=== PATIENT | female | born 1990 | race Caucasian/White ===

== ENCOUNTER 2025-05-05 07:50 | Inpatient (IN) | payer SELFPAY, OTHER ==
[2025-05-05] VITALS (39 sets, daily range): BP systolic 112–146; BP diastolic 69–95; PULSE 76–94; RESP 15–18; TEMP 35.9–36.8; O2SAT 89–100; BMI 38.2
--- NOTE | 2025-05-05 08:19 | PCM.HP.OB ---
HPI - General General Date of Admission: 05/05/25 Date of Service: 05/05/25 Chief Complaint: vaginal bleeding HPI Narrative YOLANDA PIERRE, is a 35 F who presents from home with vaginal bleeding. She had painful contractions yesterday that then improved. Vaginal bleeding has been dark red and scant. No LOF. Good FM. She offers no complaints. She has been receiving care through her overlay plastician and was planning a delivery at the birthing center. [facility] History Addt'l History: 1st was a section for breech 2nd and 3rd pregnancies she reports high blood pressure, and she had vaginal deliveries at the birthing center. The biggest baby was 8lb 5 oz NST FHR Rate Baby A Baseline: 150 Variability:: Moderate Accelerations:: 15 x 15 Decelerations:: Late (one) Uterine Activity:: 1 contraction Labs Labs Labs: No Data to Display Assessment & Plan (1) 40 weeks gestation of : (2) Uterine contractions: PLAN: Admit for intrapartum care. Cervix 4-5/70/-2, vertex, posterior, intact. Bedside TAUS performed showing baby vertex presentation, subjectively normal fluid, fundal posterior placenta, +FHT. CEFM. Discussed GBS and panel and she accepts to have completed. Discussed r/b/a section vs TOLAC, and questions answered. Discussed risk of uterine rupture. She has had 2 prior successful with biggest baby 8+ pounds. Patient desires TOLAC. Start Pitocin for augmentation. Recommend internal monitors when able to AROM, and epidural. Pelvis adequate. (3) History of section: (4) No care in current : (5) Obesity affecting :
[2025-05-05] MEDS: Lactated Ringers 1,000 ML 50 ML IV (09:15)
[2025-05-05 09:42] LABS: Mucous, Urine 0 SEEN /hpf (<or=2+); Red Blood Cells-Urine 0 SEEN /hpf (0-5)
[2025-05-05 09:47] LABS: Hematocrit 37.6 % (37-47); Hemoglobin 13.2 g/dL (12.0-15.0); Immature Granulocytes Count 0.060 X10^3/uL (0.0-0.0); Mean Corp Hgb Conc 35.1 g/dL (32-36); Mean Corpuscular Volume 86.0 fL (81-99); Mean Platelet Vol. 9.4 fl (6.2-12.0); NRBC Flagged by Analyzer 0 % (0-5); Platelet Count 244 K/mm3 (150-450); RBC Distribution Width CV 12.9 % (11.6-14.6); RBC Distribution Width SD 40.2 fl (35.1-43.9); Red Blood Count 4.37 M/mm3 (4.2-5.4); White Blood Count 9.1 K/mm3 (4.4-11.0)
[2025-05-05] MEDS: Oxytocin 15 Units/NS 250ml 15 UNITS/250 ML IV.SOLN 2 UNITS IV (10:00)
[2025-05-05] MEDS: Lactated Ringers 1,000 ML 999 ML IV (10:02)
[2025-05-05 10:05] LABS: Creatinine, Urine (random) 40.10 mg/dL (28.00-217.00)
[2025-05-05 10:09] LABS: Barbiturate Urine NEGATIVE (< 200 ng/mL); Benzodiazepine Urine NEGATIVE (< 200 ng/mL); PCP Urine NEGATIVE (< 25 ng/mL); THC Urine NEGATIVE (< 50 ng/mL)
[2025-05-05 10:16] LABS: Protein, Urine (Random) 11.1 mg/dL (0.0-12.0); Protein:Creat Ratio 277 mg/g CRE (0-200)
[2025-05-05 10:23] LABS: Hepatitis C Antibody Nonreactive (Nonreactive)
[2025-05-05 10:24] LABS: Color, Urine Yellow (Yellow); Glucose, Dipstick Normal (Normal); Ketone-Dipstick Negative (Negative); Leukocyte Esterase-Dipstick 25 /ul (Negative); Nitrite-Dipstick Negative (Negative); Occult Blood-Urine 250 /ul (Negative); Protein-Dipstick 15 mg/dl (Negative); Specific Gravity, Urine 1.020 (1.002-1.030); Urine Bilirubin Dipstick Negative (Negative)
[2025-05-05 10:28] LABS: Hepatitis B Surface Antigen Nonreactive (Nonreactive); Syphilis Antibodies Nonreactive (Nonreactive)
[2025-05-05 10:35] LABS: Squamous Epithelial Cells - UA 0-5 SEEN /hpf (5-10)
[2025-05-05 10:42] LABS: AST(SGOT) 22 U/L (<=31); Alanine Aminotransfer ALT/SGPT 13 U/L (<=34); Albumin, Serum 3.4 g/dL (3.5-5.0); Alkaline Phosphatase 110 U/L (35-104); Anion Gap 14 (5-15); BUN 4 mg/dL (4-19); BUN/Creat Ratio 8.9 RATIO (10-20); Calcium,Total 9.6 mg/dL (7.6-11.0); Carbon Dioxide 17.9 mmol/L (21.0-32.0); Chloride 105 mmol/L (98-108); Estimated Creatinine Clearance 190.04 ml/min (50-250); Globulin 2.9 g/dL (2.2-4.2); Glucose 132 mg/dL (70-99); HIV Nonreactive (Nonreactive); Potassium 3.7 mmol/L (3.3-5.1)
[2025-05-05 11:32] LABS: Uric Acid 5.2 mg/dL (2.6-6.0)
[2025-05-05] MEDS: fentaNYL-bupivacaine (epidural) 100 ML BAG EPIDURAL (11:43)
--- NOTE | 2025-05-05 12:11 | PCM.PN.OB ---
Subjective Subjective Comfortable in bed with epidural. at bedside. Objective Data Objective Data Vital Signs: Vital Signs Temp Pulse Resp BP Pulse Ox 98.1 F 83 16 125/91 H 99 05/05/25 11:48 05/05/25 12:06 05/05/25 12:07 05/05/25 12:05 05/05/25 12:06 Weight: 230 lb Body Mass Index (BMI) 38.2 Intake & Output: Intake and Output for Last 24 Hours 05/03/25 05/04/25 05/05/25 23:59 23:59 23:59 Intake Total 1041.17 / 1041.17 Balance 1041.17 / 1041.17 Lab / Micro Data 05/05/25 09:07 05/05/25 09:07 Labs: Laboratory Results - last 24 hr 05/05/25 09:07: WBC 9.1, RBC 4.37, Hgb 13.2, Hct 37.6, MCV 86.0, MCH 30.2, MCHC 35.1, RDW Std Deviation 40.2, RDW Coeff of Corinne 12.9, Plt Count 244, MPV 9.4, Immature Gran % (Auto) 0.700, Neut % (Auto) 79.2 H, Lymph % (Auto) 13.7 L, [place] % (Auto) 5.6, Eos % (Auto) 0.5, Baso % (Auto) 0.3, Absolute Neuts (auto) 7.2, Absolute Lymphs (auto) 1.25, Nucleated RBC % 0, Sodium 137, Potassium 3.7, Chloride 105, Carbon Dioxide 17.9 L, Anion Gap 14, BUN 4, Creatinine 0.50 L, Estim Creat Clear Calc 190.04, Est GFR (MDRD) Non-Af 126, BUN/Creatinine Ratio 8.9 L, Glucose 132 H, Hemoglobin A1c 5.6, Uric Acid 5.2, Calcium 9.6, Total Bilirubin 0.50, AST 22, ALT 13, Alkaline Phosphatase 110 H, Total Protein 6.3, Albumin 3.4 L, Globulin 2.9, Albumin/Globulin Ratio 1.2, Urine Color Yellow, Urine Clarity Sl. Cloudy, Urine pH 6.0, Ur Specific [place] 1.020, Urine Protein 15 H, Urine Glucose (UA) Normal, Urine Ketones Negative, Urine Occult Blood 250 H, Urine Nitrite Negative, Urine Bilirubin Negative, Urine Urobilinogen Normal, Ur Leukocyte Esterase 25 H, Urine RBC 0 SEEN, Urine WBC 0 SEEN, Ur Squamous Epith Cells 0-5 SEEN, Urine Bacteria 0 SEEN, Urine Mucus 0 SEEN, U Random Total Protein 11.1, Urine Creatinine 40.10, Protein/Creatinin Ratio 277 H, Urine Opiates Screen NEGATIVE, U Buprenorphine Qual NEGATIVE, Ur Oxycodone Screen NEGATIVE, Urine Methadone Screen NEGATIVE, Urine Fentanyl Screen NEGATIVE, Ur Barbiturates Screen NEGATIVE, Ur Phencyclidine Scrn NEGATIVE, Ur Amphetamines Screen NEGATIVE, U Benzodiazepines Scrn NEGATIVE, Urine Cocaine Screen NEGATIVE, U Cannabinoids Screen NEGATIVE, Ur Drug Screen Comment Cancelled, Syphilis Total Ab Cancelled 05/05/25 09:07: Syphilis Total Ab Nonreactive, Hep Bs Antigen Nonreactive, Hepatitis C Antibody Nonreactive, HIV 1&2 Antibody Nonreactive, Rubella IgG Antibody Nonreactive, Blood Type AB POSITIVE, Antibody Screen NEGATIVE 05/05/25 09:53: POC Glucose 130 H Micro: Microbiology 05/05/25 09:07 Urine, Clean Catch Chlamydia/Neisseria (PCR) - Final 05/05/25 09:07 Genital vaginal Group B Streptococcus (PCR) - Final Physical Exam Manual OB Exam: presentation cephalic, dilated 6, effaced 60, station -1 and other AROM clear fluid NST FHR Rate Baby A Baseline: 135 Variability:: Moderate Accelerations:: 15 x 15 Decelerations:: None FHR Category:: Category I Uterine Activity:: irregular Assessment & Plan (1) Obesity affecting : (2) History of section: (3) Uterine contractions: (4) 40 weeks gestation of : (5) Desires (vaginal after ) trial: (6) No care in current : PLAN: Plan 1) Epidural for pain management 2) AROM clear fluid 3) updated on patient status, plan, and above assessment.
--- NOTE | 2025-05-05 15:44 | OB.VAGDELI_ITS ---
Assessment & Plan (1) (vaginal after ): (2) First degree perineal laceration: (3) Lactating mother: Vaginal Delivery Maternal Presentation Maternal Presentation: Medically Indicated Induction Type of Induction: Pitocin Medical Reason for Induction: Other (vaginal bleeding) Vaginal Delivery Information Procedure Performed: Surgeon/Practitioner: Gunjan Zuñiga Date of Procedure: 05/05/25 Pre-Procedure Diagnosis: TOLAC, History of Section Post-Procedure Diagnosis: , first degree perineal laceration Type of anesthesia: Epidural Estimated Blood Loss: 300ml Time of Delivery: 15:30 Findings Description of procedure: Progressed to complete with urge to push. Epidural pain management. of viable male infant over first degree perineal laceration . APGARS 8,9 respectively. head delivered with body immediately forthcoming. Placed on maternal abdomen, strong cry. Mouth and nares suctioned for secretions. Pitocin started for active 3rd stage management. Cord doubly clamped and cut by FOB after pulsations ceased, delayed cord clamping. Placenta delivered intact via scanlon, 3 vessel cord intact. Perineum inspected and revealed first degree perineal laceration. Repaired with 3.0 vicryl rapide with epidural. Fundus firm and hemostasis achieved. EBL 300ml. Mom and baby stable, planning to breastfeed. Family bonding well. notified of delivery. Presentation: Vertex and BRYSON Amniotic Membrane Rupture Type: Artificial Amniotic Fluid Description: Clear Placental Delivery Description: Spontaneous Placenta Disposition: [facility] Specimen collected: No Cord Vessel Description: 3 Vessels Cord Entanglement: None A Gender: Male (1 minute): 8 (5 minute): 9 Delayed Cord Clamping: Yes Show Host cash control specialist: No Post Vaginal Deli Medications given after delivery: IV Pitocin Episiotomy Description: None Laceration: Perineal Extension/lac and 1st degree Complication Complications: No
[2025-05-05] MEDS: Oxytocin 15 Units/NS 250ml 15 UNITS/250 ML IV.SOLN 83 UNITS IV (16:16)
[2025-05-06] VITALS (9 sets, daily range): BP systolic 106–129; BP diastolic 64–85; PULSE 79–95; RESP 16; TEMP 36.1–36.6; O2SAT 94–97
[2025-05-06 05:06] LABS: Hematocrit 32.8 % (37-47); Hemoglobin 11.5 g/dL (12.0-15.0); Immature Granulocytes Count 0.050 X10^3/uL (0.0-0.0); Mean Corp Hgb Conc 35.1 g/dL (32-36); Mean Corpuscular Volume 86.8 fL (81-99); Mean Platelet Vol. 9.4 fl (6.2-12.0); NRBC Flagged by Analyzer 0 % (0-5); Platelet Count 185 K/mm3 (150-450); RBC Distribution Width CV 13.0 % (11.6-14.6); RBC Distribution Width SD 40.4 fl (35.1-43.9); Red Blood Count 3.78 M/mm3 (4.2-5.4); White Blood Count 10.7 K/mm3 (4.4-11.0)
--- NOTE | 2025-05-06 08:48 | PN.OBGYN_ITS ---
Subjective Subjective Denies complaints Objective Data Objective Data Vital Signs: Vital Signs Temp Pulse Resp BP Pulse Ox O2 Del Method 97.3 F L 88 16 125/85 H 96 Room Air 05/06/25 07:45 05/06/25 07:45 05/06/25 03:41 05/06/25 07:44 05/06/25 07:45 05/06/25 03:41 Oxygen Delivery Method Room Air Weight: 230 lb Body Mass Index (BMI) 38.2 Intake & Output: Intake and Output for Last 24 Hours 05/04/25 05/05/25 05/06/25 23:59 23:59 23:59 Intake Total 2369.17 / 2369.17 Output Total 1850 / 1850 500 / 500 Balance 519.17 / 519.17 -500 / -500 Lab / Micro Data 05/06/25 05:00 05/05/25 09:07 Labs: Laboratory Results - last 24 hr 05/05/25 09:07: WBC 9.1, RBC 4.37, Hgb 13.2, Hct 37.6, MCV 86.0, MCH 30.2, MCHC 35.1, RDW Std Deviation 40.2, RDW Coeff of [place]inne 12.9, Plt Count 244, MPV 9.4, Immature Gran % (Auto) 0.700, Neut % (Auto) 79.2 H, Lymph % (Auto) 13.7 L, [place] % (Auto) 5.6, Eos % (Auto) 0.5, Baso % (Auto) 0.3, Absolute Neuts (auto) 7.2, Absolute Lymphs (auto) 1.25, Nucleated RBC % 0, Sodium 137, Potassium 3.7, Chloride 105, Carbon Dioxide 17.9 L, Anion Gap 14, BUN 4, Creatinine 0.50 L, Estim Creat Clear Calc 190.04, Est GFR (MDRD) Non-Af 126, BUN/Creatinine Ratio 8.9 L, Glucose 132 H, Hemoglobin A1c 5.6, Uric Acid 5.2, Calcium 9.6, Total Bilirubin 0.50, AST 22, ALT 13, Alkaline Phosphatase 110 H, Total Protein 6.3, A lbumin 3.4 L, Globulin 2.9, Albumin/Globulin Ratio 1.2, Urine Color Yellow, Urine Clarity Sl. Cloudy, Urine pH 6.0, Ur Specific [place] 1.020, Urine Protein 15 H, Urine Glucose (UA) Normal, Urine Ketones Negative, Urine Occult Blood 250 H, Urine Nitrite Negative, Urine Bilirubin Negative, Urine Urobilinogen Normal, Ur Leukocyte Esterase 25 H, Urine RBC 0 SEEN, Urine WBC 0 SEEN, Ur Squamous Epith Cells 0-5 SEEN, Urine Bacteria 0 SEEN, Urine Mucus 0 SEEN, U Random Total Protein 11.1, Urine Creatinine 40.10, Protein/Creatinin Ratio 277 H, Urine Opiates Screen NEGATIVE, U Buprenorphine Qual NEGATIVE, Ur Oxycodone Screen NEGATIVE, Urine Methadone Screen NEGATIVE, Urine Fentanyl Screen NEGATIVE, Ur Barbiturates Screen NEGATIVE, Ur Phencyclidine Scrn NEGATIVE, Ur Amphetamines Screen NEGATIVE, U Benzodiazepines Scrn NEGATIVE, Urine Cocaine Screen NEGATIVE, U Cannabinoids Screen NEGATIVE, Ur Drug Screen Comment Cancelled, Syphilis Total Ab Cancelled 05/05/25 09:07: Syphilis Total Ab Nonreactive, Hep Bs Antigen Nonreactive, Hepatitis C Antibody Nonreactive, HIV 1&2 Antibody Nonreactive, Rubella IgG Antibody Nonreactive, Blood Type AB POSITIVE, Antibody Screen NEGATIVE 05/05/25 09:53: POC Glucose 130 H 05/05/25 12:14: POC Glucose 77 05/06/25 05:00: WBC 10.7, RBC 3.78 L, Hgb 11.5 L, Hct 32.8 L, MCV 86.8, MCH 30.4, MCHC 35.1, RDW Std Deviation 40.4, RDW Coeff of Corinne 13.0, Plt Count 185, MPV 9.4, Immature Gran % (Auto) 0.500, Neut % (Auto) 75.2 H, Lymph % (Auto) 16.6 L, [place] % (Auto) 6.2, Eos % (Auto) 1.3, Baso % (Auto) 0.2, Absolute Neuts (auto) 8.1 H, Absolute Lymphs (auto) 1.78, Nucleated RBC % 0 Micro: Microbiology 05/05/25 09:07 Urine, Clean Catch Chlamydia/Neisseria (PCR) - Final 05/05/25 09:07 Genital vaginal Group B Streptococcus (PCR) - Final Physical Exam Const alert, oriented x3 and no apparent distress HEENT normocephalic GI soft to palpation, non-tender and non-distended GI Narrative: fundus firm, mid & below umbilicus Extremity normal to inspection and no calf tenderness Assessment & Plan (1) No care in current : QUALIFIERS: Trimester: third trimester Qualified Code(s): O09.33 - Supervision of with insufficient care, third trimester COMMENT: PPD#1 (2) Obesity affecting : QUALIFIERS: Trimester: third trimester Obesity type affecting : unspecified obesity Qualified Code(s): O99.213 - Obesity complicating , third trimester (3) (vaginal after ): PLAN: Plan D/c home per patient request
--- NOTE | 2025-05-06 08:50 | DS.PCM_ITS ---
Providers Date of Admission: 05/05/25 Primary Care Physician: Parish Brennan PA-C Reason For Visit: VAGINAL DELIVERY Diagnosis Discharge Diagnosis (1) No care in current : Status: Acute Code(s): O09.30 - Supervision of with insufficient care, unspecified trimester Qualifiers: Trimester: third trimester Qualified Code(s): O09.33 - Supervision of with insufficient care, third trimester (2) Obesity affecting : Status: Acute Code(s): O99.210 - Obesity complicating , unspecified trimester Qualifiers: Trimester: third trimester Obesity type affecting : u nspecified obesity Qualified Code(s): O99.213 - Obesity complicating , third trimester (3) (vaginal after ): Status: Acute Code(s): O34.219 - Maternal care for unspecified type scar from previous delivery Plan D/c home per patient request Medications at Discharge Home Medications cardio-powder hx HTN taking per instruction of supervisor filling and packing 05/05/25 cardiocare hx of HTN taking per supervisor filling and packing instruction 05/05/25 magnesium PO per supervisor filling and packing 05/05/25 vit no.95-ferrous fumarate 28 mg-folic acid 800 mcg tablet () 1 tab PO DAILY 05/05/25 vitamin B complex (Vitamins B Complex capsule) 1 cap PO DAILY per supervisor filling and packing 05/05/25 acetaminophen 500 mg tablet 1,000 mg (2 x 500 mg) PO Q6H PRN PRN Pain 1-10 Or Fever #0 tabs 05/06/25 ibuprofen 600 mg tablet 600 mg PO Q6H PRN PRN Pain Score 1-10 #0 tabs 05/06/25 Hospital Course Operations None Procedures None Summary of Care Provided Minutes Spent on Discharge: 15 Weight / BMI Weight Weight: 230 lb Body Mass Index (BMI) 38.2 ABG / Lab / Microbiology Data 05/06/25 05:00 05/05/25 09:07 Laboratory: Laboratory Results - last 24 hr 05/05/25 09:07: WBC 9.1, RBC 4.37, Hgb 13.2, Hct 37.6, MCV 86.0, MCH 30.2, MCHC 35.1, RDW Std Deviation 40.2, RDW Coeff of Corinne 12.9, Plt Count 244, MPV 9.4, Immature Gran % (Auto) 0.700, Neut % (Auto) 79.2 H, Lymph % (Auto) 13.7 L, [place] % (Auto) 5.6, Eos % (Auto) 0.5, Baso % (Auto) 0.3, Absolute Neuts (auto) 7.2, Absolute Lymphs (auto) 1.25, Nucleated RBC % 0, Sodium 137, Potassium 3.7, Chloride 105, Carbon Dioxide 17.9 L, Anion Gap 14, BUN 4, Creatinine 0.50 L, Estim Creat Clear Calc 190.04, Est GFR (MDRD) Non-Af 126, BUN/Creatinine Ratio 8.9 L, Glucose 132 H, Hemoglobin A1c 5.6, Uric Acid 5.2, Calcium 9.6, Total Bilirubin 0.50, AST 22, ALT 13, Alkaline Phosphatase 110 H, Total Protein 6.3, A lbumin 3.4 L, Globulin 2.9, Albumin/Globulin Ratio 1.2, Urine Color Yellow, Urine Clarity Sl. Cloudy, Urine pH 6.0, Ur Specific [place] 1.020, Urine Protein 15 H, Urine Glucose (UA) Normal, Urine Ketones Negative, Urine Occult Blood 250 H, Urine Nitrite Negative, Urine Bilirubin Negative, Urine Urobilinogen Normal, Ur Leukocyte Esterase 25 H, Urine RBC 0 SEEN, Urine WBC 0 SEEN, Ur Squamous Epith Cells 0-5 SEEN, Urine Bacteria 0 SEEN, Urine Mucus 0 SEEN, U Random Total Protein 11.1, Urine Creatinine 40.10, Protein/Creatinin Ratio 277 H, Urine Opiates Screen NEGATIVE, U Buprenorphine Qual NEGATIVE, Ur Oxycodone Screen NEGATIVE, Urine Methadone Screen NEGATIVE, Urine Fentanyl Screen NEGATIVE, Ur Barbiturates Screen NEGATIVE, Ur Phencyclidine Scrn NEGATIVE, Ur Amphetamines Screen NEGATIVE, U Benzodiazepines Scrn NEGATIVE, Urine Cocaine Screen NEGATIVE, U Cannabinoids Screen NEGATIVE, Ur Drug Screen Comment Cancelled, Syphilis Total Ab Cancelled 05/05/25 09:07: Syphilis Total Ab Nonreactive, Hep Bs Antigen Nonreactive, Hepatitis C Antibody Nonreactive, HIV 1&2 Antibody Nonreactive, Rubella IgG Antibody Nonreactive, Blood Type AB POSITIVE, Antibody Screen NEGATIVE 05/05/25 09:53: POC Glucose 130 H 05/05/25 12:14: POC Glucose 77 05/06/25 05:00: WBC 10.7, RBC 3.78 L, Hgb 11.5 L, Hct 32.8 L, MCV 86.8, MCH 30.4, MCHC 35.1, RDW Std Deviation 40.4, RDW Coeff of Corinne 13.0, Plt Count 185, MPV 9.4, Immature Gran % (Auto) 0.500, Neut % (Auto) 75.2 H, Lymph % (Auto) 16.6 L, [place] % (Auto) 6.2, Eos % (Auto) 1.3, Baso % (Auto) 0.2, Absolute Neuts (auto) 8.1 H, Absolute Lymphs (auto) 1.78, Nucleated RBC % 0 Microbiology: Microbiology 05/05/25 09:07 Urine, Clean Catch Chlamydia/Neisseria (PCR) - Final 05/05/25 09:07 Genital vaginal Group B Streptococcus (PCR) - Final D/C Instructions Discharge Diet: No restrictions Discharge Activity: May Shower May resume sexual activity in: 6 weeks Weight Bearing Status: Weight bearing as tolerated Call your doctor if you observe: Fever of 101 or Higher, Coldness, Increased Pain, Change in Color, Inability to urinate, Inability to have a bowel movement, Using more than 1 pad per hour, Shortness of breath, Dizziness, Fainting spells, Chest pain, Increased palpitations (irregular heartbeat), Calf discomfort and Uncontrolled pain DC O2, CPAP, BIPAP Needs Home O2 Discharge instructions: No Please Follow Up With: Gunjan Zuñiga CNM When: Follow up in 2 and 6 weeks for visits. Meaningful Use Info Meaningful Use Meaningful Use Diagnoses (Choose all that apply): None applicable Ischemic Stroke Statin Dosing Therapy Reference: STATIN DOSE THERAPY REFERENCE: * Patients > 75 years receive moderate or high dose statin therapy. * Patients 75 years or YOUNGER should receive HIGH intensity statin dose unless contraindicated. You will be required to document reason for non-treatment if statin daily dose does not meet guidelines. HIGH DOSE STATIN THERAPY DAILY Atorvastatin > than or = to 40 mg Rosuvastatin > than or = to 20 mg Amlodipine + Atorvastatin > than or = to 2.5/40 mg Ezetimibe + Simvastatin 10/80 mg Simvastatin 80mg Discharge Plan Admission Admit Date/Time: 05/05/25 07:50 Primary Reason for Your Visit: Vaginal delivery Attending Provider: Gunjan Zuñiga Primary Care Provider: Parish Brennan Discharge Orders/Prescriptions Prescriptions: New acetaminophen 500 mg Tablet 1,000 mg PO Q6H PRN PRN (Reason: Pain 1-10 Or Fever) Qty: 0 0RF ibuprofen 600 mg Tablet 600 mg PO Q6H PRN PRN (Reason: Pain Score 1-10) Qty: 0 0RF Continued PNV cmb#95-ferrous fumarate-FA [] 28 mg iron- 800 mcg tablet 1 tab PO DAILY vitamin B complex [Vitamins B Complex] Capsule 1 cap PO DAILY magnesium PO cardiocare cardio-powder Referrals / Follow Up: Parish Brennan PACarolynC [Primary Care Provider] - Disposition Disposition (needs filled in before D/C Order can be placed): Home, Self Care
== END 2025-05-06 17:00 | disposition home or self-care (01) | DRG 807 ==
LOC: WPOUT 08:01 → WP 08:05 → WPOUT 08:17 → WP 08:17
PROVIDERS: Obstetrics & Gynecology; Admitting Provider Advanced Practice Midwife; PCP Physician Assistant; Referring Provider Advanced Practice Midwife; Visit Provider Advanced Practice Midwife
DX: O34.219 Maternal care for unspecified type scar from previous cesarean delivery (principal); Z37.0 Single live birth; O46.93 Antepartum hemorrhage, unspecified, third trimester; O99.214 Obesity complicating childbirth; O70.0 First degree perineal laceration during delivery; Z3A.40 40 weeks gestation of pregnancy; Z87.59 Personal history of other complications of pregnancy, childbirth and the puerperium
CPT/HCPCS: 59050; 76815; 80053; 80307; 81001; 82570; 82962; 83036; 84156; 84550; 85025; 86703; 86762; 86780; 86803; 86850; 86900; 86901; 87081; 87340; 87491; 87591; 87653; 99221; G0378